=== PATIENT | male | born 1965 | race Caucasian/White ===

== ENCOUNTER → 2016-10-09 | Day surgery (SDC) | payer OTHER ==
[~2016-10-09] VITALS: Ht 165.1 cm; Wt 80.7 kg
[~2016-10-09] MED LIST: CYCLOBENZAPRINE5 M2 PO; IBUPROFEN800 M1 PO; PERCOCET 5-3251 EACH PO; VICODIN 5-3001 EACH PO
--- NOTE | 2016-10-09 14:28 | Operative Report ---
Operative/Inv Procedure Report Surgery Date: 10/09/16 Name of Procedure: left ureter eswl. Pre-Operative Diagnosis: left steinstrauss: ureter stone with colic/hydro. Post-Operative Diagnosis: same Estimated Blood Loss: n/a Surgeon/Lining Vamper: MARIO MCKEON MD Anesthesia: moderate sedation Complications: none Condition: improved Operative/Procedure Note Note: The patient was taken to the operating room and placed on the ESWL table in supine position. Time out was performed, with the patient awake, to confirm identity, procedure, laterality, and other pertinent dhaval-operative information. After adequate anesthesia, the patient was positioned so that the left flank was placed over the ESWL table cut-out, and overlying the dome of the shockwave generator. C-arm fluroscopy, as well as renal US was used to locate the stone, and evaluate the left kidney. The ureter stones were visible on fluroloscopy at the distal-left ureter. Renal US confirmed mild hydronephrosis, with additional stone fragments seen in the left kidney. The left ureter stones were approximately 7 mm in size all together, and faintly visible with fluoroscopy. Using fluoroscopy, the position of the ureter stone was optimized for ESWL, using AP, and oblique views. Subsequently, E.S.W.L. was initiated at low power levels x 200 shocks. After noting the patient's tolerance to the shockwaves, the shock wave power level was quickly maximized. At the end of the procedure, the composition of the stone had changed significantly indicating the pulverization of the ureter stone. A total of 3000 shockwaves were delivered to the stone in order to achieve adequate lithotrypsy. The patient tolerated the procedures well, was awakened, and taken to recovery in satisfactory condition via stretcher. The pt will eventually be dischared to home with pain meds, diet orders, and intructions to catch fragments with straining the urine. The patient is to have follow-up renal ultrasound and KUB (after the left renal stone is treated as well) Findings: steinstrauss: persistent left renal fragments. mild hydro on renal intra-op US. Discharge Disposition: PACU CC: MARIO MCKEON MD
== END ==
LOC: STS 01:57
DX: N13.2 Hydronephrosis with renal and ureteral calculous obstruction (principal); N23 Unspecified renal colic; F17.200 Nicotine dependence, unspecified, uncomplicated
CPT/HCPCS: J1885; J2250

== ENCOUNTER 2017-03-01 11:11 | Emergency (ER) | payer OTHER ==
[~2017-03-01] VITALS: Ht 165.1 cm; Wt 81.6 kg
[~2017-03-01 11:11] MED LIST changes: -CYCLOBENZAPRINE5 M2 PO; -VICODIN 5-3001 EACH PO
--- NOTE | 2017-03-01 12:29 | RADIOLOGY REPORT ---
EXAMINATION: LEFT SHOULDER AND LEFT HUMERUS CLINICAL INFORMATION: Sprain and pain COMPARISON: None TECHNIQUE: 4 views of the left shoulder. 3 views of the left humerus FINDINGS: No acute fracture or dislocation is seen in the left shoulder. There is some mild hypertrophic spurring in the inferior aspect of the glenohumeral joint. There is mild hypertrophic spurring at the acromioclavicular joint. No soft tissue calcification is identified. No focal bone lesion is seen. No acute fracture is seen in the left humerus. No focal bone lesion is identified. IMPRESSION: No acute bony or joint space abnormality is seen in the left shoulder and humerus. There is some mild hypertrophic change in the shoulder.
--- NOTE | 2017-03-01 14:54 | ED UPPER/LOWER EXTREMITY COMPL ---
History of Present Illness General Chief Complaint: Upper Extremity Problem Stated Complaint: LFT SHOULDER AND ARM PAIN Source: patient Exam Limitations: no limitations Vital Signs & Intake/Output Vital Signs & Intake/Output Vital Signs Date Time Temp Pulse Resp B/P B/P Pulse O2 O2 Flow FiO2 Mean Ox Delivery Rate 03/01 1531 98.0 85 18 135/80 98 Room Air Room Air 03/01 1401 98.1 84 20 144/81 97 Room Air 03/01 1120 97.1 102 18 166/110 98 Room Air Allergies Coded Allergies: No Known Allergies (09/01/16) Reconcile Medications Cyclobenzaprine HCl 5 MG TABLET 1-2 TAB PO TIDPRN pain Hydrocodone/Acetaminophen (Vicodin 5-300 MG Tablet) 5 MG-300 MG TABLET 1 TAB PO TID pain Triage Note: PT STATES THAT FOR THE PAST 2 DAYS HE HAS BEEN HAVING L SHOULDER PAIN THAT RADIATES DOWN HIS ARM, PAIN HAS BEEN CONSTANT AND SHARP IN NATURE. DENIES SOB, MANUAL BP ELEVATED Triage Nurses Notes Reviewed? yes Onset: Abrupt Duration: day(s): (2), constant, continues in ED, getting worse Timing: single episode today Severity: moderate, severe Severity Numbers: 10 Pain/Injury Location: Left: Arm, Shoulder. No Modifying Factors: none Associated Symptoms: none HPI: 51-year-old male thousand and a past medical history presents claiming of pain in his left shoulder and left arm for the past 2 days. Patient reports that symptoms began gradually without any triggering event. He reports that he has had similar symptoms on multiple other occasions in the past but has never seen a doctor for this before. Located in the left shoulder and radiates down the left arm. It is worse with any type of movement or touching the area. He rates the pain as a 10 out of 10 that is described as sharp. Advil without any significant improvement. He denies any chest pain shortness of breath, NO hemoptysis, any swelling fever or abdominal pain. (LALY TOM PA-C) Past History Travel History Traveled to [place] past 21 day No Medical History Any Pertinent Medical History? see below for history Neurological: NONE EENT: NONE Cardiovascular: NONE Respiratory: NONE Gastrointestinal: NONE Hepatic: NONE Renal: KIDNEY STONES Musculoskeletal: NONE Psychiatric: NONE Endocrine: NONE SOLE SKIVER/Reproductive: NONE Surgical History Surgical History: non-contributory Psychosocial History What is your primary language Fijian Tobacco Use: Never used ETOH Use: denies use Illicit Drug Use: denies illicit drug use Family History Hx Contributory? No (NEGRO ORR,LALY) Review of Systems Review of Systems Constitutional: Reports: no symptoms. EENTM: Reports: no symptoms. Respiratory: Reports: no symptoms. Cardiovascular: Reports: no symptoms. Gastrointestinal/Abdominal: Reports: no symptoms. Genitourinary: Reports: no symptoms. Musculoskeletal: Reports: see HPI. Skin: Reports: no symptoms. Neurological/Psychological: Reports: no symptoms. Hematologic/Endocrine: Reports: no symptoms. Immunological: Reports: no symptoms. All Other Systems: Reviewed and Negative (NEGRO ORR,LALY) Physical Exam Physical Exam General Appearance: well developed/nourished, no apparent distress, alert, awake , mild distress Head: atraumatic, normal appearance Eyes: Bilateral: normal appearance, PERRL, EOMI. Ears, Nose, Throat: normal pharynx, normal ENT inspection, hearing grossly normal Neck: normal inspection, supple, full range of motion, no midline tenderness Cardiovascular/Respiratory: normal breath sounds, normal peripheral pulses, regular rate/rhythm, no respiratory distress Peripheral Pulses: 2+ radial (R), 2+ radial (L), 2+ dorsalis pedis (R), 2+ dorsalis pedis (L) Back: normal inspection, normal range of motion Shoulder Left: normal inspection, tenderness, soft tissue tenderness, limited range of motion Shoulder Right: normal range of motion, normal inspection Elbow Left: normal range of motion, normal inspection, mass, swelling, tenderness Elbow Right: normal range of motion, normal inspection Hand Left: normal inspection, normal range of motion Hand Right: normal inspection, normal range of motion Upper Extremity Reflexes: 2+: bicep (R), bicep (L). Neurologic/Tendon: normal sensation, normal motor functions, normal tendon functions Skin: intact, normal color, warm/dry Lymphatic: no anterior cervical latia Comments: There is pain with palpation of the left posterior lateral and anterior deltoid. There is also PAIN with palpation of the of the left tricep. Full range of motion left shoulder is intact with pain during abduction. Pain with left lateral neck flexion. No pain with palpation of the left clavicle or before meals joint. No swelling redness bruising. (NEGRO ORR,LALY) Progress Differential Diagnosis: contusion, dislocation, fracture, gout, sprain, tendon injury, ROTATOR CUFF TEAR, ROTATOR CUFF TENDINITIS, MUSCLE STRAIN, OSTEOARTHRITIS, FROZEN SHOULDER, RADICULOPATHY Plan of Care: Orders Procedure Date/time Status EKG 03/01 1123 Active EKG does not show any ST or T-wave changes. X-rays are negative for fracture or arthritis. Recent history of physical pain seems to be related to a muscular skeletal cause. Will be discharged home with ibuprofen Flexeril and Vicodin as needed for pain. He will follow-up with primary care doctor and orthopedist this week. Discussed all results with patient. He is in agreement with plan and nontoxic appearing at discharge. (NEGRO ORR,LALY) Diagnostic Imaging: Viewed by Me: Radiology Read. Initial ED EKG: normal axis, normal intervals, normal p-waves, normal QRS complex, normal sinus rhythm, no ST T wave changes Comments: EXAM TYPE: RAD - XRY-HUMERUS, LEFT; XRY-SHOULDER COMPLETE-LEFT EXAMINATION: LEFT SHOULDER AND LEFT HUMERUS CLINICAL INFORMATION: Sprain and pain COMPARISON: None TECHNIQUE: 4 views of the left shoulder. 3 views of the left humerus FINDINGS: No acute fracture or dislocation is seen in the left shoulder. There is some mild hypertrophic spurring in the inferior aspect of the glenohumeral joint. There is mild hypertrophic spurring at the acromioclavicular joint. No soft tissue calcification is identified. No focal bone lesion is seen. No acute fracture is seen in the left humerus. No focal bone lesion is identified. IMPRESSION: No acute bony or joint space abnormality is seen in the left shoulder and humerus. There is some mild hypertrophic change in the shoulder. (NEGRO ORR,LALY) Departure Departure Disposition: HOME OR SELF CARE Condition: Stable Clinical Impression Primary Impression: Left shoulder pain Qualifiers: Chronicity: acute Qualified Code: M25.512 - Pain in left shoulder Referrals: PATIENT HAS NO PRIMARY CARE DR (PCP/Family) Additional Instructions: Rest avoid heavy lifting or excessive physical activity. Apply a warm compress to the affected area. Continue to use Advil 800 mg every 8 hours with food as needed for pain. Cyclobenzaprine is a muscle relaxer that can also be used every 8 hours as needed for pain. This may cause drowsiness. Vicodin is a narcotic pain medication that can be used as needed for severe pain only. This may cause drowsiness especially when combined with cyclobenzaprine. Do not drive while taking cyclobenzaprine or Vicodin. Make a follow-up appointment with your primary care doctor and orthopedic doctor this week. Return to the emergency department with chest pain, shortness of breath fever or any other concerns. Departure Forms: Customer Survey General Discharge Information Prescriptions: Current Visit Scripts Cyclobenzaprine HCl 1-2 TAB PO TIDPRN #30 TAB Hydrocodone/Acetaminophen (Vicodin 5-300 MG Tablet) 1 TAB PO TID #10 TAB (LALY TOM PA-C) PA/INTERMEDIATE FRAME TENDER Co-Sign Statement Statement: [] I saw and evaluated the patient. I have also reviewed all the pertinent lab results and diagnostic results. I agree with the findings and the plan of care as documented in the PA's/INTERMEDIATE FRAME TENDER's documentation. [x] I have reviewed the ED Record and agree with the PA's/INTERMEDIATE FRAME TENDER's documentation. [] Additions or exceptions (if any) to the PAs/INTERMEDIATE FRAME TENDER's note and plan are summarized below: [] (DORINA MATA DO
[2017-03-01] MEDS ORDERED: CYCLOBENZAPRINE5 M2 PO (15:16)
[2017-03-01] MEDS ORDERED: VICODIN 5-3001 EACH PO (15:17)
[2017-03-01 15:31] VITALS: BP 135/80
== END 2017-03-01 15:31 ==
LOC: ERH 11:11
DX: M25.512 Pain in left shoulder (principal)
CPT/HCPCS: 73030-LT; 73060-LT; 93005; 93010